=== PATIENT | female | born 1975 | race Caucasian/White ===

== ENCOUNTER 2016-05-10 18:44 | Emergency (ER) | payer BC, OTHER ==
[~2016-05-10] VITALS: Ht 162.6 cm; Wt 73.1 kg
[2016-05-10 18:54] VITALS: TEMP 36.7; Ht 162.6 cm; Wt 73.1 kg
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
[2016-05-10] MEDS ORDERED: TRIA75TA53 PO (20:10)
[2016-05-10] MEDS ORDERED: BUPR-79 PO (20:10)
--- NOTE | 2016-05-10 20:14 | EMERGENCY ROOM VISIT NOTE ---
ED Visit Note First contact with patient: 19:37 CHIEF COMPLAINT: Elbow pain HISTORY OF PRESENT ILLNESS: This 40-year-old female patient presents to the emergency department ambulatory complaining of pain in the left elbow. The patient states that 2 days ago, she tripped over a dog gate and fell, striking her left elbow on the ground. She also reports bruising to her left leg. The patient rates their pain as Sharp and 6/10. The patient has taken ibuprofen for relief of the pain. She has also been applying ice to the elbow. The patient has not had previous fractures to this elbow. The patient does not have any numbness. She does report tingling in the left fourth and fifth digits. The patient denies any other injuries. REVIEW OF SYSTEMS: A 6 system review of systems was completed with positives and pertinent negatives listed in the HPI. ALLERGIES: No known drug allergies MEDICATIONS: Wellbutrin, Maxzide PMH: No significant past medical history. SOCIAL HISTORY: The patient lives locally with family. PHYSICAL EXAM: Vital Signs: Reviewed Nurse's notes, vital signs stable. GENERAL : This is a 40-year-old female, in no acute distress, well-developed, well- nourished. SKIN: The skin was without rashes, erythema, edema, warmth, or bruising. Capillary reflex less than 3 seconds. MUSCULOSKELETAL: There is tenderness over the radial head of the left elbow. Patient has full range of motion of the elbow, but does state it is painful to flex and extend the elbow. There is no tenderness of the shoulder, wrist, or hand. The patient is able to give a thumbs up, make an OK sign, and a #3 with their fingers. Radial pulse 2+. NEURO: Patient was alert and oriented to person place and time. Normal sensation to light and sharp touch. EMERGENCY DEPARTMENT COURSE: I examined the patient. An x-ray of the left elbow was reviewed myself and read by radiology and shows no acute fractures. The patient declined arm sling. She was instructed to continue icing the elbow and taking ibuprofen at home. She should follow-up with orthopedics or her primary care provider if she has continued pain later this week. She verbalized understanding of my assessment and treatment plan. The patient was discharged home in stable condition. DIAGNOSIS: Elbow Contusion Current/Historical Medications Scheduled Bupropion (Wellbutrin Sr), 150 MG PO QAM Triamterene/Hctz (Maxzide 75MG/50MG), 1 TAB PO QAM Allergies Coded Allergies: No Known Allergies (Unverified , 05/10/16) Vital Signs Date Time Temp Pulse Resp B/P Pulse Ox O2 Delivery O2 Flow Rate FiO2 05/10/16 20:18 67 16 141/96 99 Room Air 05/10/16 18:54 36.7 75 18 165/104 99 Room Air Departure Information Impression Primary Impression: Injury of left elbow Dispostion Home / Self-Care Condition GOOD Referrals Renata Siddiqui D.O. (PCP) Patient Instructions My [facility] Additional Instructions You have been treated in the Emergency Department for Elbow Pain. For pain control, you can use the following [id number] medicines (if >12 yo): - Regular strength (325mg/tab) Tylenol (acetaminophen) 2 tabs every 4-6 hours as needed. Do not exceed 12 tablets in a 24 hour period. Avoid taking more than 4 grams (4000 mg) of Tylenol per day. This includes any other sources of acetaminophen you may take on a regular basis. - Regular strength (200 mg/tab) Advil (ibuprofen) 1-2 tabs every 4-6 hours as needed. Do not exceed a dose of 3200 mg per day. If this is a recent injury (<24 hrs), ice can be applied to the area of pain for the first 3 days to help decrease pain and inflammation. Follow-up with your primary care provider/orthopedics if pain persists in 1 week. Return to the Emergency Department if your current symptoms worsen despite treatment course outlined above, or if you develop any of the following symptoms : intractable pain despite aforementioned treatment course or new onset of numbness or tingling of the arm. Problem Qualifiers Primary Impression: Injury of left elbow Encounter type: initial encounter Qualified Codes: S59.902A - Unspecified injury of left elbow, initial encounter
[2016-05-10 20:18] VITALS: BP 141/96; PULSE 67; O2SAT 99
== END 2016-05-10 20:20 | disposition home or self-care (01) ==
LOC: C.EDB 18:45 → C.EDD 20:20
DX: S50.02XA Contusion of left elbow, initial encounter (principal); W01.0XXA Fall on same level from slipping, tripping and stumbling without subsequent striking against object, initial encounter

== ENCOUNTER → 2017-02-25 | Outpatient (CLI) | payer BC ==
[~2017-02-25] MED LIST: BUPR-79 PO; TRIA75TA53 PO
[2017-02-25 17:11] LABS: BASO % 0.8 %; BASO ABS # 0.07 K/uL (0-0.2); EOS % 5.6 %; EOS ABS # 0.48 K/uL (0-0.5); HEMATOCRIT 41.4 % (37-47); HEMOGLOBIN 14.3 g/dL (12.0-16.0); IG# 0.02 K/uL (0.00-0.02); LYMPH % 34.8 %; MEAN CORPUSCULAR HEMOGLOBIN 31.1 pg (25-34); MEAN CORPUSCULAR HGB CONC 34.5 g/dl (32-36); MEAN PLATELET VOLUME 9.6 fL (7.4-10.4); MONO % 7.6 %; MONO ABS # 0.66 K/uL (0.11-0.59); PLATELET COUNT 382 K/uL (130-400); RED CELL DISTRIBUTION WIDTH CV 13.1 % (11.5-14.5); RED CELL DISTRIBUTION WIDTH SD 42.7 fL (36.4-46.3); WHITE BLOOD COUNT 8.63 K/uL (4.8-10.8)
[2017-02-25 17:23] LABS: BLOOD UREA NITROGEN 25 mg/dl (7-18); CALCIUM 9.4 mg/dl (8.5-10.1); CARBON DIOXIDE 29 mmol/L (21-32); CREATININE 1.42 mg/dl (0.60-1.20); GLUCOSE 92 mg/dl (70-99); POTASSIUM 3.7 mmol/L (3.5-5.1); SODIUM 136 mmol/L (136-145)
== END | disposition home or self-care (01) ==
LOC: C.LAB1850 16:05
PROVIDERS: ATTEND Family Medicine
DX: I10 Essential (primary) hypertension (principal); R53.83 Other fatigue

== ENCOUNTER 2017-03-03 22:14 | Emergency (ER) | payer OTHER, BC ==
[~2017-03-03] VITALS: Ht 162.6 cm; Wt 73.8 kg
[2017-03-03 22:18] VITALS: TEMP 36.5; Ht 162.6 cm; Wt 73.8 kg
[2017-03-03] MEDS ORDERED: ONDANSETRON INJ 2 MG/ML 2 ML VIAL IV STA (23:25)
[2017-03-03] MEDS ORDERED: KETOROLAC TROMETHAMINE 30 MG/ML VIAL IV STA (23:25)
[2017-03-03] MEDS ORDERED: SODIUM CHLORIDE 0.9% 1000ML 1,000 ML IV ONE (23:30)
[2017-03-04 00:25] LABS: BASO % 0.3 %; BASO ABS # 0.03 K/uL (0-0.2); EOS % 3.8 %; EOS ABS # 0.36 K/uL (0-0.5); HEMOGLOBIN 14.4 g/dL (12.0-16.0); IG# 0.02 K/uL (0.00-0.02); LYMPH % 27.1 %; LYMPH ABS # 2.57 K/uL (1.2-3.4); MEAN CELL VOLUME 90.3 fL (80-100); MEAN CORPUSCULAR HEMOGLOBIN 31.7 pg (25-34); MEAN CORPUSCULAR HGB CONC 35.1 g/dl (32-36); MEAN PLATELET VOLUME 9.7 fL (7.4-10.4); MONO % 8.6 %; MONO ABS # 0.82 K/uL (0.11-0.59); NEUT ABS # 5.68 K/uL (1.4-6.5); PLATELET COUNT 396 K/uL (130-400); RED CELL DISTRIBUTION WIDTH CV 12.8 % (11.5-14.5); WHITE BLOOD COUNT 9.48 K/uL (4.8-10.8)
[2017-03-04 00:40] LABS: PTT PATIENT 27.3 SECONDS (21.0-31.0)
[2017-03-04 00:43] LABS: ALBUMIN 3.7 gm/dl (3.4-5.0); CALCIUM 9.2 mg/dl (8.5-10.1); CREATININE 1.31 mg/dl (0.60-1.20); POTASSIUM 3.1 mmol/L (3.5-5.1)
[2017-03-04 00:46] LABS: TOTAL PROTEIN 7.6 gm/dl (6.4-8.2)
[2017-03-04 02:00] VITALS: BP 125/79; PULSE 61; O2SAT 99
[2017-03-04] MEDS ORDERED: ONDANSETRON HOME PACK 4MG OD TAB PO ONE (02:00)
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
== END 2017-03-04 02:10 | disposition home or self-care (01) ==
LOC: C.EDB 22:15 → C.EDA 03-04 02:10
DX: S09.90XA Unspecified injury of head, initial encounter (principal); R42 Dizziness and giddiness; R51 Headache; R11.0 Nausea; V49.40XA Driver injured in collision with unspecified motor vehicles in traffic accident, initial encounter